=== PATIENT | female | born 1960 | race Caucasian/White ===

== ENCOUNTER 2021-01-27 13:12 | Inpatient (IN) | payer MEDICAID ==
[~2021-01-27] VITALS: Ht 170.2 cm; Wt 61.0 kg
[~2021-01-27 13:12] MED LIST: ADV50100 IH; CITA20TA28 PO; LISI20TA28 PO; LORA0.5T PO; NICO-631 TD; NORCO10T PO
[2021-01-27] MEDS ORDERED: lactulose 20gm/30ml cup PO ONE (13:50)
[2021-01-27] MEDS ORDERED: normal saline 1000ML IV soln IVB ONE ×2 (13:50→14:05)
[2021-01-27] MEDS ORDERED: magnesium hydroxide 30ml (MOM) UD suspension PO ONE (13:50)
[2021-01-27 13:55] LABS: BASOPHILS % (AUTO) 0.3 % (0-1); EOSINOPHILS # (AUTO) 0.1 X10'3 (0-0.9)
[2021-01-27 13:57] LABS: HEMATOCRIT 22.2 % (35.0-45.0); HEMOGLOBIN 7.2 g/dl (12.0-16.0); LYMPHOCYTES # (AUTO) 1.7 X10'3 (1.1-4.8); LYMPHOCYTES % (AUTO) 14.6 % (21-51); MEAN CORPUSCULAR HEMOGLOBIN 27.9 PG (27.0-31.0); MEAN CORPUSCULAR HGB CONC 32.3 g/dL (33.0-36.5); MEAN CORPUSCULAR VOLUME 86.2 FL (78-98); MEAN PLATELET VOLUME 6.8 FL (7.4-10.4); MONOCYTES % (AUTO) 8.4 % (2-12); NEUTROPHILS # (AUTO) 8.7 X10'3 (1.8-7.7); NEUTROPHILS % (AUTO) 75.7 % (42-75); PLATELET COUNT 705 X10'3 (140-440); RED BLOOD COUNT 2.57 X10'6 (4.20-5.60); RED CELL DISTRIBUTION WIDTH 16.9 % (11.5-14.5); WHITE BLOOD COUNT 11.5 X10'3 (4.5-11.0)
[2021-01-27 14:08] LABS: ALANINE AMINOTRANSFERASE 7 U/L (12-78); ALBUMIN 1.9 G/DL (3.4-5.0); ALBUMIN/GLOBULIN RATIO 0.4 (1.1-1.5); ALKALINE PHOSPHATASE 117 IU/L (46-116); ANION GAP 10 (8-16); ASPARTATE AMINO TRANSFERASE 49 U/L (10-37); BILIRUBIN,TOTAL 0.2 MG/DL (0.1-1.0); BLOOD UREA NITROGEN 9 MG/DL (7-18); BUN/CREATININE RATIO 14.1 (6.6-38.0); CALCIUM 11.1 MG/DL (8.5-10.1); CHLORIDE 97 MMOL/L (99-107); CREATININE 0.64 MG/DL (0.40-0.90); GLUCOSE 126 MG/DL (70-104); POTASSIUM 3.9 MMOL/L (3.5-5.1); SODIUM 134 MMOL/L (135-145); TOTAL CARBON DIOXIDE 26.7 MMOL/L (24-32); TOTAL PROTEIN 7.2 G/DL (6.4-8.2); eGFR > 90 ML/MIN
[2021-01-27 14:24] LABS: PLATELET ESTIMATE INCREASED
[2021-01-27 14:25] LABS: ANISOCYTOSIS 1+; GIANT PLATELET FEW; LARGE PLATELETS FEW
[2021-01-27] MEDS ORDERED: LORazepam 2 mg/ml vial IV ONE (15:10)
[2021-01-27] MEDS ORDERED: iohexol 300mg/ml 100ml inj. ONE (15:29)
[2021-01-27] MEDS ORDERED: potassium Cl 20 mEq SR tablet PO PRN ×2 (15:55)
[2021-01-27] MEDS ORDERED: bisacodyl 10mg suppository rectal RC PRN (15:55)
[2021-01-27] MEDS ORDERED: potassium Cl 40MEQ/1/2NS 520ml 520 ML IV PRN ×2 (15:55)
[2021-01-27] MEDS ORDERED: acetaminophen 325mg tablet PO PRN ×2 (15:55)
[2021-01-27] MEDS ORDERED: magnesium 4gm in 100ml NS 100 ML IV PRN (15:55)
[2021-01-27] MEDS ORDERED: magnesium 2GM in 50ml NS 50 ML IV PRN (15:55)
[2021-01-27] MEDS ORDERED: ondansetron/PF 4mg/2ml inj IV PRN (15:55)
[2021-01-27] MEDS ORDERED: metoclopramide 5 mg/ml inj IV PRN (15:55)
[2021-01-27] MEDS ORDERED: HYDROmorphone inj. 0.5 MG/0.5 ML DISP.SYRIN IV PRN (15:55)
[2021-01-27] MEDS ORDERED: acetaminophen 650mg rectal suppository RC PRN (15:55)
[2021-01-27] MEDS ORDERED: HYDROcodone/acetaminophen 5mg/325mg tablet PO PRN (15:55)
[2021-01-27] MEDS ORDERED: magnesium Cl slow-release 64mg tablet PO PRN (15:55)
[2021-01-27] MEDS ORDERED: magnesium hydroxide 30ml (MOM) UD suspension PO PRN (15:55)
[2021-01-27] MEDS ORDERED: mag hydrox/Alum hydrox/simeth 30ml oral suspension PO PRN (15:55)
[2021-01-27] MEDS ORDERED: NO HOME MEDS (16:39)
[2021-01-27] MEDS: normal saline 1000ml 1,000 ML IV SCH ×2 (16:53→22:03)
--- NOTE | 2021-01-27 17:28 | NUR ---
Pt requesting something for her headache and abdominal pain
[2021-01-27 18:00] VITALS: BP 107/70
[2021-01-27 18:05] VITALS: BP 104/78
--- NOTE | 2021-01-27 18:05 | NUR ---
correction on blood transfusion, started at 1805, pt is resting quietly on gurney, resp even and unlabored, skin pale, dry, warm, IV site to left AC is patent and clear
[2021-01-27 18:20] VITALS: BP 106/70
[2021-01-27] MEDS ORDERED: nicotine 14mg patch - 24hr TD ONE (18:20)
--- NOTE | 2021-01-27 18:22 | NUR ---
pt has no s/s of reaction to blood, continues to rest quietly on gurney
[2021-01-27] MEDS: K and/or MAG REPLACEMENT MC SCH (20:00)
[2021-01-27] MEDS: LORazepam 0.5 MG tablet PO PRN (20:16)
[2021-01-27 20:33] VITALS: BP 113/77
[2021-01-27] MEDS ORDERED: temazepam 15mg capsule PO PRN (21:00)
[2021-01-27 23:53] VITALS: BP 112/72
[2021-01-28] VITALS: BP 152/96
[2021-01-28 06:30] VITALS: BP 113/67
--- NOTE | 2021-01-28 06:30 | NUR ---
Patient in room [facility]. I have received report from LEON Chandler and had the opportunity to ask questions and assume patient care.
--- NOTE | 2021-01-28 06:39 | NUR ---
Problems reprioritized. Patient report given, questions answered & plan of care reviewed with LEON Hinson.
[2021-01-28 07:12] LABS: BASOPHILS # (AUTO) 0.1 X10'3 (0-0.2); BASOPHILS % (AUTO) 0.9 % (0-1); EOSINOPHILS # (AUTO) 0.1 X10'3 (0-0.9); EOSINOPHILS % (AUTO) 1.4 % (0-6); HEMATOCRIT 23.7 % (35.0-45.0); HEMOGLOBIN 7.9 g/dl (12.0-16.0); LYMPHOCYTES # (AUTO) 1.2 X10'3 (1.1-4.8); LYMPHOCYTES % (AUTO) 15.4 % (21-51); MEAN CORPUSCULAR HEMOGLOBIN 28.6 PG (27.0-31.0); MEAN CORPUSCULAR HGB CONC 33.2 g/dL (33.0-36.5); MEAN CORPUSCULAR VOLUME 86.1 FL (78-98); MEAN PLATELET VOLUME 6.7 FL (7.4-10.4); MONOCYTES # (AUTO) 0.8 X10'3 (0-0.9); MONOCYTES % (AUTO) 10.2 % (2-12); NEUTROPHILS # (AUTO) 5.5 X10'3 (1.8-7.7); NEUTROPHILS % (AUTO) 72.1 % (42-75); PLATELET COUNT 578 X10'3 (140-440); RED BLOOD COUNT 2.76 X10'6 (4.20-5.60); RED CELL DISTRIBUTION WIDTH 16.6 % (11.5-14.5); WHITE BLOOD COUNT 7.7 X10'3 (4.5-11.0)
[2021-01-28] MEDS ORDERED: nicotine 14mg patch - 24hr TD SCH (08:00)
[2021-01-28] MEDS: K and/or MAG REPLACEMENT MC SCH (08:00)
[2021-01-28 08:09] LABS: ALANINE AMINOTRANSFERASE 8 U/L (12-78); ALBUMIN 1.6 G/DL (3.4-5.0); ALBUMIN/GLOBULIN RATIO 0.3 (1.1-1.5); ALKALINE PHOSPHATASE 100 IU/L (46-116); ANION GAP 10 (8-16); ASPARTATE AMINO TRANSFERASE 49 U/L (10-37); BILIRUBIN,TOTAL 0.3 MG/DL (0.1-1.0); BLOOD UREA NITROGEN 6 MG/DL (7-18); BUN/CREATININE RATIO 10.9 (6.6-38.0); CALCIUM 10.2 MG/DL (8.5-10.1); CHLORIDE 105 MMOL/L (99-107); CREATININE 0.55 MG/DL (0.40-0.90); GLUCOSE 83 MG/DL (70-104); MAGNESIUM 1.7 MG/DL (1.5-2.4); SODIUM 140 MMOL/L (135-145); TOTAL CARBON DIOXIDE 25.2 MMOL/L (24-32); TOTAL PROTEIN 6.4 G/DL (6.4-8.2); eGFR > 90 ML/MIN
[2021-01-28] MEDS: normal saline 1000ml 1,000 ML IV SCH (08:42)
[2021-01-28] MEDS: LORazepam 0.5 MG tablet PO PRN ×2 (08:46→18:05)
[2021-01-28] MEDS: HYDROcodone/acetaminophen 10/325mg tab PO PRN ×3 (08:48→16:36)
[2021-01-28 11:00] VITALS: BP 110/68
[2021-01-28] MEDS ORDERED: morphine 10mg/0.5ml (conc. morphine) oral syringe PO PRN (17:10)
[2021-01-28] MEDS ORDERED: hyoscyamine 0.125mg TAB.SUBL SL PRN (17:10)
--- NOTE | 2021-01-28 18:17 | NUR ---
I have received report from LEON Hinson and had the opportunity to ask questions and assume patient care.
--- NOTE | 2021-01-28 18:20 | NUR ---
Problems reprioritized. Patient report given, questions answered & plan of care reviewed with LEON Chandler.
[2021-01-29] MEDS: LORazepam 0.5 MG tablet PO PRN ×4 (01:33→15:45)
--- NOTE | 2021-01-29 06:20 | NUR ---
Patient in room [facility]. I have received report from LEON Chandler and had the opportunity to ask questions and assume patient care.
--- NOTE | 2021-01-29 06:21 | NUR ---
Problems reprioritized. Patient report given, questions answered & plan of care reviewed with LEON Hinson.
[2021-01-29 06:30] VITALS: BP 138/81
[2021-01-29] MEDS: HYDROcodone/acetaminophen 10/325mg tab PO PRN ×3 (07:40→19:33)
--- NOTE | 2021-01-29 11:48 | NUR ---
Malnutrition consult: Pt unsure of wt loss though reports decreased appetite per malnutrition risk screen with RN. Per ED report pt reports not eating but has been drinking fluids for the last two weeks. Pt reports no BM x 2 weeks [employer] per ED report, likely contributing to poor appetite and PO intake. LBM 4. Patient's current wt of 61 kg isn't scaled and only documented wt hx in EMR is 58 kg from 2013, also not scaled. Pt with no documented significant decrease in muscle strength or edema. Pt appears well developed well nourished per H&P. Pt currently on a regular diet documented to have refused three meals provided since admit and likely with some changes in appetite/PO intake [employer] EDIT[employer] though no intervention to be implemented at this time as patient's code status is DNR with comfort care. 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 Will continue to follow per LOS. Recommendations: 1) Bowel care per comfort care measures Addendum: 01/29/21 at [address] Amended: Links added.
[2021-01-29] MEDS ORDERED: LORazepam 0.5 MG tablet PO PRN (15:50)
--- NOTE | 2021-01-29 18:35 | NUR ---
Problems reprioritized. Patient report given, questions answered & plan of care reviewed with LEON Dupont.
--- NOTE | 2021-01-29 18:39 | NUR ---
Patient in room [facility]. I have received report from THU QUINTERO and had the opportunity to ask questions and assume patient care. Addendum: 01/29/21 at 1839 by Kiah Howard RN Amended: Links added.
[2021-01-29 19:16] VITALS: BP 118/70
--- NOTE | 2021-01-29 19:30 | NUR ---
medicated for pain with po norco. pt pALE IN COLOR WITH DARK CIRCLES AROUND HER EYES C/O FEELING WEAK AND USING BEDPAN FOR TO VOID. STATED FEELS WEAK AND EXHAUSTED. DENIED AND OTHER NEEDS AT THIS TIME. PT OFFERED A SHOWER STATED DID NOT FEEL UP TO IT.
--- NOTE | 2021-01-29 22:08 | NUR ---
resting eyes closed appears comfortable.
--- NOTE | 2021-01-30 00:20 | NUR ---
resting without changes
--- NOTE | 2021-01-30 03:03 | NUR ---
pt resting appears comfortable.
[2021-01-30] MEDS: HYDROcodone/acetaminophen 10/325mg tab PO PRN ×3 (04:40→16:49)
[2021-01-30] MEDS: LORazepam 1 MG tablet PO PRN ×5 (04:43→19:27)
--- NOTE | 2021-01-30 04:47 | NUR ---
pt awoke c/o pain medicated with norco 10mg and then asked for 1mg of ativan for anxiety. given cup of coffee pt with less discoloring around eyes this am.
--- NOTE | 2021-01-30 06:48 | NUR ---
Problems reprioritized. Patient report given, questions answered & plan of care reviewed with EDIS QUINTERO. Addendum: 01/30/21 at 0648 by Kiah Howard RN Amended: Links added.
[2021-01-30 07:00] VITALS: BP 114/68
--- NOTE | 2021-01-30 07:04 | NUR ---
Patient in room [facility]. I have received report from kyler QUINTERO and had the opportunity to ask questions and assume patient care.
--- NOTE | 2021-01-30 17:28 | NUR ---
patient medicated as per EMAR with Ativan and [place] with effect. sons x2 into see patient. Comfort cart present. Time spent with patient listening to her fears and anxious thoughts.
--- NOTE | 2021-01-30 18:04 | NUR ---
Problems reprioritized. Patient report given, questions answered & plan of care reviewed with kyler QUINTERO.
--- NOTE | 2021-01-30 18:35 | NUR ---
Patient in room [facility]. I have received report from EDIS QUINTERO and had the opportunity to ask questions and assume patient care. Addendum: 01/30/21 at 1835 by Kiah Howard RN Amended: Links added.
--- NOTE | 2021-01-30 19:31 | NUR ---
PT C/O ANXIETY medicated with 1mg of ativan for this.
[2021-01-30 19:33] VITALS: BP 109/63
--- NOTE | 2021-01-30 20:00 | NUR ---
refused bedbath and lien change. now resting after ativan po.
--- NOTE | 2021-01-30 22:30 | NUR ---
resting eyes closed appears comfortable.
--- NOTE | 2021-01-31 01:10 | NUR ---
resting eyes closed without changes.
[2021-01-31] MEDS: HYDROcodone/acetaminophen 10/325mg tab PO PRN ×3 (05:07→17:39)
--- NOTE | 2021-01-31 05:09 | NUR ---
awoke in pain medicated with norco for this.
--- NOTE | 2021-01-31 06:05 | NUR ---
Problems reprioritized. Patient report given, questions answered & plan of care reviewed with EDIS QUINTERO. Addendum: 01/31/21 at 0605 by Kiah Howard RN Amended: Links added.
--- NOTE | 2021-01-31 06:48 | NUR ---
Patient in room [facility]. I have received report from Doyle shi and had the opportunity to ask questions and assume patient care.
[2021-01-31 08:00] VITALS: BP 119/68
[2021-01-31] MEDS: LORazepam 1 MG tablet PO PRN ×2 (09:41→17:39)
--- NOTE | 2021-01-31 17:30 | NUR ---
patient appeared stable visted by jaja. seen by DR Harris, and case management assistant Damaris with regards plan of care, see note. Minimal appetite. Ativan and [place] given x2 with effect. will continue to monitor
--- NOTE | 2021-01-31 18:15 | NUR ---
Problems reprioritized. Patient report given, questions answered & plan of care reviewed with LEON Dupont.
--- NOTE | 2021-01-31 18:22 | NUR ---
Patient in room [facility]. I have received report from EDIS QUINTERO and had the opportunity to ask questions and assume patient care. Addendum: 01/31/21 at 1823 by Kiah Howard RN Amended: Links added.
--- NOTE | 2021-01-31 18:25 | NUR ---
Student documentation: I have reviewed and agree with all interventions, assessments performed and documented by Ann Marie Solomon.
--- NOTE | 2021-01-31 19:25 | NUR ---
pt resting comfortably without s&s of distress. vitals q day as on comfort care and per pt request so not taken.
--- NOTE | 2021-01-31 22:28 | NUR ---
pt remains appearing comfortable and resting. no s&S of distress.
[2021-02-01] MEDS: HYDROcodone/acetaminophen 10/325mg tab PO PRN ×2 (04:56→18:53)
--- NOTE | 2021-02-01 04:57 | NUR ---
pt awoke medicated for pain 03/31 and bedpan given.
--- NOTE | 2021-02-01 07:11 | NUR ---
resting eyes closed appears comfortable at this time.
[2021-02-01 07:15] VITALS: BP 116/76
[2021-02-01] MEDS: LORazepam 1 MG tablet PO PRN ×4 (08:17→21:21)
--- NOTE | 2021-02-01 19:00 | NUR ---
REPORT GIVEN TO MÓNICA QUINTERO AND [employer] STUDENT. PT AWAKE IN BED, ASKING FOR PAIN MED AND ANXIETY MEDS WHICH I WILL GIVE. SHE IS ALERT, ORIENTED AND APPROPRIATE. PER CASE MGT PT WILL BE DISCHARGED HOME TOMORROW. DR CADE DID WRITE DISCHARGE ORDERS IN ANTICIPATION OF DISCHARGE AND I DID MAKE HER AWARE THAT HOSPICE WILL BE AVAILABLE TO FOLLOW HER TOMORROW PER REIMBURSEMENT SPEC [facility], AND WILL HAVE SON HOME TO HELP TOMORROW. DR CADE WILL KEEP DISCHARGE IN, BUT IS AWARE PT WILL LEAVE TOMORROW.
--- NOTE | 2021-02-01 19:04 | NUR ---
Patient in room [facility]. I have received report from Cece QUINTERO and had the opportunity to ask questions and assume patient care. Pt sitting up in bed watching tv, no signs of distress, will continue to monitor.
--- NOTE | 2021-02-01 19:04 | NUR ---
I have received report from Cece QUINTERO and had the opportunity to ask questions and assume patient care.
[2021-02-01 20:07] VITALS: BP 116/64
--- NOTE | 2021-02-01 21:30 | NUR ---
Pt field start IV came out and was in the pt's bed. Pt stated that she did not want another IV because she would be going home.
[2021-02-02] MEDS: HYDROcodone/acetaminophen 10/325mg tab PO PRN (05:40)
--- NOTE | 2021-02-02 06:17 | NUR ---
Problems reprioritized. Patient report given, questions answered & plan of care reviewed with Zamzam QUINTERO.
--- NOTE | 2021-02-02 06:31 | NUR ---
Problems reprioritized. Patient report given, questions answered & plan of care reviewed with Zamzam QUINTERO.
--- NOTE | 2021-02-02 06:40 | NUR ---
Patient in room [facility]. I have received report from Pallavi QUINTERO and had the opportunity to ask questions and assume patient care.
[2021-02-02 06:55] VITALS: BP 129/70
--- NOTE | 2021-02-02 07:00 | NUR ---
Patient in room [facility]. I have received report from RN Pallavi and [facility] Student Nurse Heidi and had the opportunity to ask questions and assume patient care.
[2021-02-02 08:00] VITALS: BP 129/70
[2021-02-02] MEDS: LORazepam 1 MG tablet PO PRN (10:04)
[2021-02-02 10:15] VITALS: BP 106/66
--- NOTE | 2021-02-02 10:15 | NUR ---
Spoke with primary nurse, primary nurse states no issues or concerns. Patient will be discharge today on hospice/ comfort care.
== END 2021-02-02 12:33 | disposition hospice, home (50) | DRG 461 ==
LOC: ER 13:13 → ED HOLD 15:52 → SUR 3N 19:05
PROVIDERS: ADMIT Family Medicine; ATTEND Family Medicine
PROC: 30233N1 Transfusion of Nonautologous Red Blood Cells into Peripheral Vein, Percutaneous Approach (ICD-10-PCS; principal; 2021-01-27)
DX: C64.2 Malignant neoplasm of left kidney, except renal pelvis (principal); C77.2 Secondary and unspecified malignant neoplasm of intra-abdominal lymph nodes; C79.51 Secondary malignant neoplasm of bone; E83.52 Hypercalcemia; E87.1 Hypo-osmolality and hyponatremia; D64.9 Anemia, unspecified; I10 Essential (primary) hypertension; J44.9 Chronic obstructive pulmonary disease, unspecified; Z66 Do not resuscitate; Z51.5 Encounter for palliative care; F17.210 Nicotine dependence, cigarettes, uncomplicated; R74.01 Elevation of levels of liver transaminase levels; Z79.899 Other long term (current) drug therapy; Z72.89 Other problems related to lifestyle
CPT/HCPCS: 36415; 36430; 70450; 71045; 71260; 74176; 74177; 74181; 78306; 80053; 83735; 83880; 84145; 84484; 85008; 85025; 85610; 86885; 86900; 86901; 86920; 87081; 93005; 93971; 93975; 96361; 96374; 99285; A9503; G0378; J2060; J7030; P9016; Q9967

== ENCOUNTER 2021-02-19 17:24 | Emergency (ER) | payer MEDICAID ==
[~2021-02-19] VITALS: Ht 172.7 cm; Wt 54.5 kg
[2021-02-19 17:29] VITALS: BP 133/80
[2021-02-19 18:42] LABS: MONOCYTES # (AUTO) 0.9 X10'3 (0-0.9)
[2021-02-19 18:44] LABS: BASOPHILS # (AUTO) 0.1 X10'3 (0-0.2); BASOPHILS % (AUTO) 0.8 % (0-1); EOSINOPHILS % (AUTO) 0.2 % (0-6); LYMPHOCYTES # (AUTO) 1.2 X10'3 (1.1-4.8); MEAN CORPUSCULAR HEMOGLOBIN 26.2 PG (27.0-31.0); MEAN CORPUSCULAR HGB CONC 31.9 g/dL (33.0-36.5); MEAN PLATELET VOLUME 6.8 FL (7.4-10.4); MONOCYTES % (AUTO) 8.1 % (2-12); NEUTROPHILS # (AUTO) 9.4 X10'3 (1.8-7.7); NEUTROPHILS % (AUTO) 80.9 % (42-75); PLATELET COUNT 710 X10'3 (140-440); RED BLOOD COUNT 2.68 X10'6 (4.20-5.60); RED CELL DISTRIBUTION WIDTH 19.3 % (11.5-14.5); WHITE BLOOD COUNT 11.7 X10'3 (4.5-11.0)
[2021-02-19 18:48] LABS: HEMATOCRIT 21.9 % (35.0-45.0)
[2021-02-19 19:05] LABS: ALANINE AMINOTRANSFERASE 9 U/L (12-78); ALBUMIN 1.5 G/DL (3.4-5.0); ALBUMIN/GLOBULIN RATIO 0.3 (1.1-1.5); ALKALINE PHOSPHATASE 153 IU/L (46-116); ANION GAP 12 (8-16); ASPARTATE AMINO TRANSFERASE 52 U/L (10-37); BILIRUBIN,TOTAL 0.3 MG/DL (0.1-1.0); BLOOD UREA NITROGEN 11 MG/DL (7-18); BUN/CREATININE RATIO 18.6 (6.6-38.0); CALCIUM 11.6 MG/DL (8.5-10.1); CHLORIDE 95 MMOL/L (99-107); CREATININE 0.59 MG/DL (0.40-0.90); GLUCOSE 82 MG/DL (70-104); MAGNESIUM 1.8 MG/DL (1.5-2.4); POTASSIUM 3.8 MMOL/L (3.5-5.1); SODIUM 134 MMOL/L (135-145); TOTAL CARBON DIOXIDE 26.7 MMOL/L (24-32); TOTAL PROTEIN 7.1 G/DL (6.4-8.2); eGFR > 90 ML/MIN
[2021-02-19 19:20] LABS: PLATELET ESTIMATE INCREASED
[2021-02-19] MEDS ORDERED: normal saline 1000ML IV soln IVB ONE (19:20)
[2021-02-19 19:21] LABS: ANISOCYTOSIS 2+
--- NOTE | 2021-02-19 22:21 | NUR ---
Spoke to Pt's son Robinson, he said he will be home from work by 12 midnight and will be able to receive his mom.
--- NOTE | 2021-02-20 01:50 | NUR ---
Pt moved to room 8. Respirations normal, no s/s of distress.
== END 2021-02-20 04:58 | disposition home or self-care (01) ==
LOC: ER 17:24
DX: G93.41 Metabolic encephalopathy (principal); C79.51 Secondary malignant neoplasm of bone; Z51.5 Encounter for palliative care; E86.0 Dehydration; D64.9 Anemia, unspecified; I10 Essential (primary) hypertension; F17.210 Nicotine dependence, cigarettes, uncomplicated; Z72.89 Other problems related to lifestyle
CPT/HCPCS: 36415; 71045; 80053; 83605; 83735; 84145; 85008; 85025; 87040; 93005; 96360; 96361; 99285; J7030